=== PATIENT | female | born 2000 | race Caucasian/White ===

== ENCOUNTER 2023-08-22 00:37 | Day surgery (SDC) | payer BC, SELFPAY ==
[2023-08-14 10:08] VITALS: BMI 21.2
--- NOTE | 2023-08-14 10:12 | PC.NURSE ---
Report to the Outpatient Waiting Room, entrance under the green pavilion located off [facility], at time 1030 on date 08/22/23. Planned Procedure Time: 1230. Time changes happen often and if your time is changed the preop area will call you the afternoon before. - You and your visitor will be asked to self-screen and do not enter if you have any COVID symptoms. - A mask is optional within the hospital at this time. Patients may have clear liquids (water, carbonated beverages, clear teas, apple juice) until 3 hours prior to surgery with a maximum of 20 ounces. - No food from midnight until time of surgery Take the following medications with a SIP of water the morning of surgery: CONTROL PILL DO NOT STOP ANY OF YOUR OTHER PRESCRIPTION MEDICATIONS PRIOR TO SURGERY ?EXCEPT THE FOLLOWING Medications to discontinue per physician: N/A Date to take last dose: N/A Please no make-up, nail macedonian, hairspray, perfume, deodorant, or body powder the day of surgery. No jewelry (including any body piercings) or valuables the day of surgery, leave them at home. Please take a shower or bath the night before, or the morning of, surgery with an antibacterial soap. Wear comfortable, loose fitting clothing. - Jewelry must be removed prior to entering the operating room. Rings and piercings that are not removed may be cut off. - The hospital will not accept responsibility for valuables. - Please leave all valuables, including medications, at home the day of surgery. If you are going home after surgery, a licensed trackless trolley driver must drive you home. - NO public transportation without another adult if you receive anesthesia. - We recommend that an adult stay with you for 24 hours following discharge. - We also recommend that you do not drive, make important decision, drink alcoholic beverages, or take any drugs that were not prescribed by your health care provider for at least 24 hours after your discharge time. Follow any additional instructions given to you from your surgeon. If you or anyone in your household have experienced Covid symptoms in the past week, please notify your surgeon or the nurse liaison at the phone number below for possible testing. Telephone instructions given to PT - BRENTNO ARTEAGA and asked if any additional questions and then verbalized understanding. Patient advised to call surgeon office or pre surgery nurse liaison [phone] if any additional questions.
[2023-08-22 10:48] VITALS: BP 136/76; PULSE 102; RESP 20; TEMP 36.4; O2SAT 100
[2023-08-22] MEDS: LACTATED RINGERS 1,000 ML 30 ML IV CONT (10:56)
--- NOTE | 2023-08-22 12:21 | P.PNAN_ITS ---
Anes - Initial Pre Proc Eval Procedure: Operation Date: 08/22/23 12:30 Proposed Procedures p Partial Hymenectomy - Louise Higuera MD Date/Time: 08/22/23 12:21 Surgeon: Louise Higuera MD Pre Op Diagnosis: Imperforate Hymen Patient Data Age: 23 Gender: F Height: 1.6 m Weight: 56.7 kg Last Vital Signs Temp 36.4 C 08/22/23 10:48 Pulse 102 H 08/22/23 10:48 Resp 20 08/22/23 10:48 BP 136/76 08/22/23 10:48 Pulse Ox 100 08/22/23 10:48 O2 Del Method Room Air 08/22/23 10:48 Allergies Allergy/AdvReac Type Severity Reaction Status Date / Time No Known Allergies Allergy Verified 08/22/23 10:47 Home Medications Medication Instructions Recorded Confirmed Type norethindrone (contraceptive) 0.35 0.35 mg PO DAILY 08/14/23 08/14/23 History mg tablet Patient hx anesthesia problems: none Family hx anesthesia problems: none Results Review: All pre-operative results and documents have been reviewed as part of the pre- operative evaluation. [facility] Social History Social History Smoking status: Never smoker Alcohol intake: never Substance use: never Substance use type: does not use Living arrangements: with family Spiritual care concerns: No Anes - Eval Final PreProcedure Day of Procedure 08/22/23 12:21 Patient weight: normal Heart: regular rate and rhythm Lungs: clear to auscultation Airway: Mallampati scale class 1 Neurological: alert and oriented Last oral intake: >/= 8 hours ASA classification: I Emergent: no Anesthetic plan: proceed Anesthesia type and monitoring: general GIVS and standard monitoring Results Review: All pre-operative results and documents have been reviewed as part of the pre- operative evaluation. Informed Consent: The patient's anesthetic plan and its attendant risks and benefits were discussed with the patient/family/POA. Questions were solicited and answers provided to the satisfaction of the patient/family/POA.
--- NOTE | 2023-08-22 13:20 | WPDHPUPDATE1 ---
History and Physical Update Update Date/Time: 08/22/23 13:20 History and Physical has been reviewed, including an updated exam of the patient. There are NO changes in the patient's condition. Risks, benefits, and alternatives have been discussed and questions answered. Patient agrees to proceed with procedure.
[2023-08-22] MEDS: ceFAZolin 2 GM/D5W 50 ML 2 GM/50 ML BAG IVPB (13:45)
[2023-08-22] MEDS: LIDO 1%/EPINEPHRINE 1:100,000 50 ML VIAL INFILTRATE (13:45)
[2023-08-22 14:14] VITALS: BP 85/51; PULSE 78; RESP 12; O2SAT 100
--- NOTE | 2023-08-22 14:35 | W.PM.PROC2 ---
Procedure Note - Detailed Date of Procedure 08/22/23 Pre-op Diagnosis Imperforate Hymen Post-op Diagnosis Same Procedure Performed Partial hymenectomy Surgeon Louise Higuera MD Anesthesia General Indications Dyspareunia Findings Minimally perforated hymen, normal vulva otherwise. Description of Procedure The patient is was taken the operating room. She has prepped draped in the dorsal lithotomy position after induction of general anesthesia. Stay sutures were placed in the bilateral labia a and perineum. Base of the hymen was crushed with a hemostat. This was done in multiple steps around the area of the hymen. It formed a large arc on the left side of the patient's introitus. The hymen was then transected cut nearly flush with the vagina. This was done in an arc around the left side and posterior aspect. Sutures and cautery then used to make this incision hemostatic. Stay sutures were removed. Patient tolerated the procedure well. She is taking coverage stable condition. Estimated Blood Loss -15.0 Condition Stable Disposition Same day
[2023-08-22 14:40] VITALS: BP 101/65; PULSE 89
[2023-08-22 15:10] VITALS: BP 108/75; PULSE 87
[2023-08-22 15:35] VITALS: BP 113/70; PULSE 75
== END 2023-08-22 15:45 | disposition home or self-care (01) ==
PROVIDERS: PCP Nurse Practitioner Women's Health; Visit Provider Obstetrics & Gynecology
PROC: (CPT 56700; principal; 2023-08-22 12:30)
DX: Q52.3 Imperforate hymen (principal)
CPT/HCPCS: 56700; J0690; J2250; J2704; J3010; J7120